=== PATIENT | male | born 1970 | race Caucasian/White ===

== ENCOUNTER 2016-06-24 14:32 | Emergency (ER) | payer BC ==
[2016-06-24] MEDS ORDERED: FAMOTIDINE 20 MG TABLET PO ONE (14:58)
[2016-06-24] MEDS ORDERED: GLUCAGON,HUMAN RECOMB 1 MG INJ SUBCUT STA (15:00)
--- NOTE | 2016-06-24 15:00 | ER Document Report ---
ED Medical Screen (RME) - General Chief Complaint: Abdominal Injury Stated Complaint: POSSIBLE INDIGESTION Time seen by provider: 14:53 Mode of Arrival: Ambulatory Information source: Patient Notes: 45-year-old male presents to ED for possible indigestion or food bolus. He states he ate coconut cake icing and he ate too much of it and it felt like some of it is stuck in his throat.. He states he has drank some water since then but now he has a pain from this. I have greeted and performed a rapid initial assessment of this patient. A comprehensive ED assessment and evaluation of the patient, analysis of test results and completion of medical decision making process will be conducted by an additional ED providers. - Related Data Allergies/Adverse Reactions: aspirin Allergy (Verified 06/24/16 14:53) Physical Exam - Vital signs Vitals: Temp Pulse Resp BP Pulse Ox 97.9 F 77 14 166/99 H 97 06/24/16 14:39 06/24/16 14:39 06/24/16 14:39 06/24/16 14:39 06/24/16 14:39 Course - Vital Signs Vital signs: Temp Pulse Resp BP Pulse Ox 97.9 F 77 14 166/99 H 97 06/24/16 14:39 06/24/16 14:39 06/24/16 14:39 06/24/16 14:39 06/24/16 14:39
--- NOTE | 2016-06-24 16:25 | ER Document Report ---
[id number] INDIGESTION Mode of Arrival: Ambulatory Information source: Patient Notes: 45-year-old male presents with complaints of difficulty swallowing. Patient notes he swallowed coconuts with icing and feels that it is stuck. Patient notes since 11:00 this morning anything he eats or drinks he vomits right back up TRAVEL OUTSIDE OF THE [place] IN LAST 30 DAYS: No - HPI Onset: This morning Onset/Duration: Sudden Quality of pain: Achy Severity: Mild Pain Level: 1 Associated symptoms: None Exacerbated by: Denies Relieved by: Denies Similar symptoms previously: No Recently seen / treated by doctor: No - Related Data Allergies/Adverse Reactions: aspirin Allergy (Verified 06/24/16 14:53) Past Medical History - General Information source: Patient - Social History Smoking Status: Never Smoker Cigarette use (# per day): No Chew tobacco use (# tins/day): No Smoking Education Provided: No Frequency of alcohol use: None Drug Abuse: None Family History: Reviewed & Not Pertinent Patient has suicidal ideation: No Patient has homicidal ideation: No Renal/ Medical History: Denies: Hx Peritoneal Dialysis Surgical Hx: Negative Review of Systems - Review of Systems Notes: PHYSICAL EXAMINATION: GENERAL: Well-appearing, well-nourished and in no acute distress. HEAD: Atraumatic, normocephalic. EYES: Pupils equal round and reactive to light, extraocular movements intact, sclera anicteric, conjunctiva are normal. ENT: Nares patent, oropharynx clear without exudates. Moist mucous membranes. NECK: Normal range of motion, supple without lymphadenopathy LUNGS: Breath sounds clear to auscultation bilaterally and equal. No wheezes rales or rhonchi. HEART: Regular rate and rhythm without murmurs ABDOMEN: Soft, nontender, nondistended abdomen. No guarding, no rebound. No masses appreciated. Musculoskeletal: Normal range of motion, no pitting or edema. No cyanosis. NEUROLOGICAL: Cranial nerves grossly intact. Normal speech, normal gait. Normal sensory, motor exams PSYCH: Normal mood, normal affect. SKIN: Warm, Dry, normal turgor, no rashes or lesions noted. Physical Exam - Vital signs Vitals: Temp Pulse Resp BP Pulse Ox 97.9 F 77 14 166/99 H 97 06/24/16 14:39 06/24/16 14:39 06/24/16 14:39 06/24/16 14:39 06/24/16 14:39 Course - Re-evaluation Re-evalutation: 06/24/16 16:23 pt unable to hold down soda, immediately vomited, Surgeon requests transfer will call new [facility] for consult, Dr Churchill will call back 06/24/16 16:57 Dr goldsmith ed will accept transfer 06/24/16 17:[address] Churchill who will evaluate and take care of the patient Patient wishes to go private vehicle,, I explained to him the risks of this form transport and that is not suggested he states he feels well wishes to drive himself Patient wishes to try more oral by mouth challenge 06/24/16 17:16 Pt drank 3 sodas with no difficulty, will dc home After performing a Medical Screening Examination, I estimate there is LOW risk for ACUTE APPENDICITIS, BOWEL OBSTRUCTION, ACUTE CHOLECYSTITIS, PERFORATED DIVERTICULITIS, INCARCERATED HERNIA, PANCREATITIS, PELVIC INFLAMMATORY DISEASE, PERFORATED ULCER, ECTOPIC , or TUBO-OVARIAN ABSCESS, thus I consider the discharge disposition reasonable. Also, there is no evidence or peritonitis , sepsis, or toxicity. The patient and I have discussed the diagnosis and risks , and we agree with discharging home with close follow-up with the understanding that symptoms and presentations can change. We also discussed returning to the Emergency Department immediately if new or worsening symptoms occur. We have discussed the symptoms which are most concerning (e.g., bloody stool, fever, changing or worsening pain, vomiting) that necessitate immediate return. 06/24/16 19:42 - Vital Signs Vital signs: Temp Pulse Resp BP Pulse Ox 97.8 F 71 14 151/99 H 100 06/24/16 17:23 06/24/16 17:23 06/24/16 17:23 06/24/16 17:23 06/24/16 17:23 Discharge - Discharge Clinical Impression: Esophageal obstruction due to food impaction Condition: Stable Disposition: HOME, SELF-CARE Instructions: Esophageal Foreign Body ([facility]), Esophageal Food Impaction ([facility]) Additional Instructions: Follow up with your physician tomorrow for further care or return to the ED IMMEDIATELY if symptoms worsen or new concerns occur
[2016-06-24] MEDS ORDERED: METOCLOPRAMIDE HCL INJ/PF 10 MG/2 ML SDV IV ONE (16:55)
[2016-06-24 17:34] VITALS: BP 151/99
== END 2016-06-24 17:23 | disposition home or self-care (01) ==
LOC: ER 14:32
DX: T18.128A Food in esophagus causing other injury, initial encounter (principal); R13.10 Dysphagia, unspecified; R11.10 Vomiting, unspecified; X58.XXXA Exposure to other specified factors, initial encounter; Z88.6 Allergy status to analgesic agent
CPT/HCPCS: 99283; 96372; J1610